=== PATIENT | male | born 1950 | race Asian ===

== ENCOUNTER 2017-04-02 14:17 | Inpatient (IN) | payer OTHER ==
[~2017-04-02] VITALS: Ht 160 cm; Wt 76.3 kg
[2017-04-02 14:33] LABS: GLUCOSE,POINT OF CARE 392 MG/DL (70-110)
[2017-04-02] MEDS ORDERED: ASPI-1093 PO (14:38)
[2017-04-02] MEDS ORDERED: SITA25 PO (14:38)
[2017-04-02] MEDS ORDERED: GLIP5 PO (14:38)
[2017-04-02] MEDS ORDERED: AMLO-511 PO (14:38)
[2017-04-02] MEDS ORDERED: LISI-660 PO (14:38)
[2017-04-02] MEDS ORDERED: ASPIRIN 81 MG CHEWABLE TABLET PO ONE (14:45)
[2017-04-02 15:03] LABS: BASOPHILS % (AUTO) 0.5 % (0.0-2.0); HEMATOCRIT 41.5 % (41-53); HEMOGLOBIN 14.7 g/dL (13.5-17.5); LYMPHOCYTES # (AUTO) 1.2 K/uL (1.0-4.8); LYMPHOCYTES % (AUTO) 17.1 % (22.0-44.0); MEAN CORPUSCULAR HEMOGLOBIN 31.8 pg (26.0-34.0); MEAN CORPUSCULAR HGB CONC 35.4 G/dL (31.0-37.0); MEAN CORPUSCULAR VOLUME 90 fL (80-100); MONOCYTES # (AUTO) 0.5 K/uL (0.1-1.0); MONOCYTES % (AUTO) 6.8 % (2.0-9.0); NEUTROPHILS # (AUTO) 4.8 K/uL (1.8-7.7); NEUTROPHILS % (AUTO) 71.6 % (40.0-70.0); PLATELET COUNT (AUTO) 214 K/uL (150-450); RED BLOOD CELL COUNT(AUTO) 4.63 MIL/uL (4.50-5.90); RED CELL DISTRIBUTION WIDTH 12.6 % (11.5-14.5); WHITE BLOOD COUNT (AUTO) 6.8 K/uL (4.5-11.0)
[2017-04-02 15:18] LABS: APPEARANCE,URINE CLEAR (CLEAR); GLUCOSE, URINE (UA) >=1000 mg/dL (NEGATIVE); KETONES,URINE NEGATIVE (NEGATIVE); LEUKOCYTE ESTERASE ,URINE NEGATIVE (NEGATIVE); OCCULT BLOOD,URINE TRACE (NEGATIVE); PROTEIN,URINE SEE CONFIRM (NEGATIVE)
[2017-04-02 15:21] LABS: ANION GAP 9 mmol/L (8-16); CALCIUM, TOTAL 8.9 mg/dL (8.8-10.5); CARBON DIOXIDE 26 mmol/L (22-29); CHLORIDE 101 mmol/L (98-107); CREATININE 2.09 mg/dL (0.60-1.30); GLOMERULAR FILTR. RATE CALC 32 mL/min (>60); POTASSIUM 3.9 mmol/L (3.5-5.1); SODIUM SERUM 136 mmol/L (136-145); UREA NITROGEN, BLOOD 21 mg/dL (7-18)
[2017-04-02 15:31] LABS: B-TYPE NATRIURETIC PEPTIDE 43 pg/mL (0-100)
[2017-04-02 15:32] LABS: ADD UA MICROSCOPIC YES; SULFOSALICYLIC ACID,URINE 2+ (Negative); WBC,URINE 0-2 /HPF (0-5)
[2017-04-02 15:45] LABS: ALANINE AMINOTRANSFERASE 27 U/L (12-78); ALBUMIN 3.2 g/dL (3.4-5.0); BILIRUBIN,TOTAL 0.4 mg/dL (0.1-1.0); CREATINE KINASE MB 0.8 ng/mL (0-5); CREATINE KINASE, TOTAL 160 U/L (39-308); TOTAL PROTEIN, SERUM 7.3 g/dL (6.4-8.2)
[2017-04-02 16:03] LABS: ASPARTATE AMINOTRANSFERASE 14 U/L (15-37)
[2017-04-02 16:27] LABS: GLUCOSE,POINT OF CARE 312 MG/DL (70-110)
[2017-04-02] MEDS ORDERED: GlipiZIDE 5 MG TABLET PO ONE (16:45)
[2017-04-02] MEDS ORDERED: 0.9% SODIUM CHLORIDE 10 ML SYRINGE IVP PRN (16:45)
[2017-04-02] MEDS ORDERED: ONDANSETRON HCL 4 MG/2 ML VIAL IVP PRN ×2 (16:45→18:15)
[2017-04-02] MEDS ORDERED: ACETAMINOPHEN 325 MG TABLET PO PRN ×2 (16:45→18:15)
[2017-04-02 18:13] VITALS: BP 151/90
[2017-04-02] MEDS ORDERED: ALBUTEROL SULFATE 2.5 MG/0.5 ML NEB SOLUTION NEB PRN (18:15)
[2017-04-02] MEDS ORDERED: MAGNESIUM HYDROXIDE SUSPENSION 30 ML UDCUP PO PRN (18:15)
[2017-04-02] MEDS ORDERED: BISACODYL 10 MG RECTAL RECTAL SUPPOSITORY PR PRN (18:15)
[2017-04-02] MEDS ORDERED: HYDROCODONE/ACETAMINOPHEN 5-325 MG TABLET PO PRN (18:15)
[2017-04-02] MEDS ORDERED: ZOLPIDEM TARTRATE 5 MG TABLET PO PRN (18:15)
[2017-04-02] MEDS ORDERED: IPRATROPIUM BROMIDE 0.5 MG/2.5 ML NEB SOLUTION NEB PRN (18:15)
[2017-04-02] MEDS ORDERED: MORPHINE SULFATE 2 MG/ML SYRINGE IVP PRN (18:15)
[2017-04-02] MEDS ORDERED: DEXTROSE 50%-WATER 25 GM/50 ML SYRINGE IVP PRN (18:15)
[2017-04-02 19:47] VITALS: BP 135/83
[2017-04-02] MEDS: DOCUSATE SODIUM 100 MG CAPSULE PO SCH (20:00)
[2017-04-02] MEDS: INSULIN ASPART 100 UNITS/ML SQ PRN (20:34)
[2017-04-02 23:19] VITALS: BP 137/80
[2017-04-03] MEDS: HEPARIN SODIUM,PORCINE 5,000 UNITS/ML VIAL SQ SCH ×4 (00:17→23:21)
[2017-04-03 05:33] VITALS: BP 142/77
[2017-04-03] MEDS: INSULIN ASPART 100 UNITS/ML SQ PRN ×4 (06:08→20:08)
[2017-04-03 07:27] VITALS: BP 131/73
[2017-04-03] MEDS: DOCUSATE SODIUM 100 MG CAPSULE PO SCH ×2 (09:00→20:03)
[2017-04-03] MEDS: SitaGLIPtin PHOSPHATE 50 MG TABLET PO SCH (09:15)
[2017-04-03] MEDS: ASPIRIN 81 MG EC TABLET PO SCH (09:15)
[2017-04-03] MEDS: GlipiZIDE 5 MG TABLET PO SCH ×2 (09:15→13:01)
[2017-04-03] MEDS: PANTOPRAZOLE SODIUM 40 MG/VIAL IVP SCH (09:16)
[2017-04-03] MEDS: LISINOPRIL 5 MG TABLET PO SCH (09:16)
[2017-04-03] MEDS: AmLODIPine BESYLATE 5 MG TABLET PO SCH (09:16)
[2017-04-03 11:22] LABS: GLUCOSE COMMENT 1 Received Meds; GLUCOSE,POINT OF CARE 228 MG/DL (70-110)
[2017-04-03 11:34] VITALS: BP 128/65
[2017-04-03 11:38] LABS: GLUCOSE COMMENT 1 Received Meds; GLUCOSE COMMENT 2 Doctor Notified; GLUCOSE,POINT OF CARE 402 MG/DL (70-110)
[2017-04-03 15:03] VITALS: BP 128/77
[2017-04-03 19:39] VITALS: BP 137/74
[2017-04-03 19:54] LABS: GLUCOSE,POINT OF CARE 256 MG/DL (70-110)
[2017-04-03 23:12] VITALS: BP 129/76
[2017-04-04 04:55] VITALS: BP 120/74
[2017-04-04] MEDS: INSULIN ASPART 100 UNITS/ML SQ PRN ×3 (05:54→17:23)
[2017-04-04 07:17] LABS: GLUCOSE COMMENT 1 Received Meds; GLUCOSE,POINT OF CARE 236 MG/DL (70-110)
[2017-04-04 07:17] LABS: GLUCOSE COMMENT 1 Received Meds; GLUCOSE,POINT OF CARE 246 MG/DL (70-110)
[2017-04-04 07:50] VITALS: BP 140/72
[2017-04-04] MEDS: HEPARIN SODIUM,PORCINE 5,000 UNITS/ML VIAL SQ SCH ×2 (08:27→16:47)
[2017-04-04] MEDS: GlipiZIDE 5 MG TABLET PO SCH ×2 (08:28→12:12)
[2017-04-04] MEDS: DOCUSATE SODIUM 100 MG CAPSULE PO SCH (08:28)
[2017-04-04] MEDS: SitaGLIPtin PHOSPHATE 50 MG TABLET PO SCH (08:28)
[2017-04-04] MEDS: ASPIRIN 81 MG EC TABLET PO SCH (08:28)
[2017-04-04] MEDS: LISINOPRIL 5 MG TABLET PO SCH (08:28)
[2017-04-04] MEDS: AmLODIPine BESYLATE 5 MG TABLET PO SCH (08:28)
[2017-04-04] MEDS: PANTOPRAZOLE SODIUM 40 MG/VIAL IVP SCH (08:49)
[2017-04-04 11:31] VITALS: BP 136/83
[2017-04-04 11:48] LABS: GLUCOSE COMMENT 1 Received Meds; GLUCOSE,POINT OF CARE 256 MG/DL (70-110)
[2017-04-04 15:49] VITALS: BP 137/62
[2017-04-04 18:35] LABS: BASOPHILS % (AUTO) 0.8 % (0.0-2.0); EOSINOPHILS % (AUTO) 3.4 % (1.0-6.0); HEMATOCRIT 42.8 % (41-53); HEMOGLOBIN 14.9 g/dL (13.5-17.5); LYMPHOCYTES # (AUTO) 2.1 K/uL (1.0-4.8); LYMPHOCYTES % (AUTO) 26.1 % (22.0-44.0); MEAN CORPUSCULAR HEMOGLOBIN 31.3 pg (26.0-34.0); MEAN CORPUSCULAR HGB CONC 34.7 G/dL (31.0-37.0); MEAN CORPUSCULAR VOLUME 90 fL (80-100); MONOCYTES # (AUTO) 0.6 K/uL (0.1-1.0); MONOCYTES % (AUTO) 7.9 % (2.0-9.0); NEUTROPHILS % (AUTO) 61.8 % (40.0-70.0); PLATELET COUNT (AUTO) 233 K/uL (150-450); RED BLOOD CELL COUNT(AUTO) 4.75 MIL/uL (4.50-5.90); RED CELL DISTRIBUTION WIDTH 12.8 % (11.5-14.5); WHITE BLOOD COUNT (AUTO) 8.2 K/uL (4.5-11.0)
[2017-04-04 18:43] LABS: CALCIUM, TOTAL 9.6 mg/dL (8.8-10.5); CREATININE 2.37 mg/dL (0.60-1.30); MAGNESIUM 1.9 mg/dL (1.80-2.40); POTASSIUM 4.4 mmol/L (3.5-5.1)
[2017-04-04 18:54] LABS: PROTHROMBIN TIME 10.2 SEC (9.4-11.6)
[2017-04-04] MEDS ORDERED: ASPI-1093 PO (18:56)
[2017-04-04] MEDS ORDERED: AMLO-511 PO (18:57)
[2017-04-04] MEDS ORDERED: DSS100 PO (18:57)
[2017-04-04] MEDS ORDERED: GLIP5 PO (18:57)
[2017-04-04] MEDS ORDERED: HEPA500017 SQ (18:58)
[2017-04-04] MEDS ORDERED: LISI-660 PO (18:58)
[2017-04-04] MEDS ORDERED: PANT40I IV (18:59)
[2017-04-04] MEDS ORDERED: SITA50 PO (18:59)
[2017-04-04] MEDS ORDERED: ACET-2902 PO (18:59)
[2017-04-04] MEDS ORDERED: AUD NEB (19:00)
[2017-04-04] MEDS ORDERED: BISA5TAB12 PO (19:00)
[2017-04-04] MEDS ORDERED: HYDR-3965 PO (19:02)
[2017-04-04] MEDS ORDERED: D50SYG IVP (19:02)
[2017-04-04 19:19] VITALS: BP 131/79
[2017-04-04] MEDS ORDERED: INSNOV SQ (19:22)
[2017-04-04] MEDS ORDERED: IPRNEB IH (19:23)
[2017-04-04] MEDS ORDERED: MOM30 PO (19:23)
[2017-04-04] MEDS ORDERED: MS100DRIP SQ (19:24)
[2017-04-04] MEDS ORDERED: ZOLP5 PO (19:25)
[2017-04-04] MEDS ORDERED: ONDA4 IV (19:25)
[2017-04-04 20:17] LABS: GLUCOSE,POINT OF CARE 234 MG/DL (70-110)
[2017-04-04 22:12] LABS: GLUCOSE,POINT OF CARE 255 MG/DL (70-110)
== END 2017-04-04 19:50 | disposition short-term general hospital (02) | DRG 312 ==
LOC: EMS 14:19 → 5N 16:25
PROVIDERS: ADMIT Hospitalist; ATTEND Hospitalist
DX: R55 Syncope and collapse (principal); E11.22 Type 2 diabetes mellitus with diabetic chronic kidney disease; E11.65 Type 2 diabetes mellitus with hyperglycemia; N18.9 Chronic kidney disease, unspecified; Z79.84 Long term (current) use of oral hypoglycemic drugs; Z79.82 Long term (current) use of aspirin; Z79.899 Other long term (current) drug therapy; Z83.3 Family history of diabetes mellitus; Z82.49 Family history of ischemic heart disease and other diseases of the circulatory system; I25.10 Atherosclerotic heart disease of native coronary artery without angina pectoris; V43.52XA Car driver injured in collision with other type car in traffic accident, initial encounter; V49.69XA Unspecified car occupant injured in collision with other motor vehicles in traffic accident, initial encounter; Y93.89 Activity, other specified; Y92.89 Other specified places as the place of occurrence of the external cause; Y99.8 Other external cause status; I12.9 Hypertensive chronic kidney disease with stage 1 through stage 4 chronic kidney disease, or unspecified chronic kidney disease; Z95.5 Presence of coronary angioplasty implant and graft
CPT/HCPCS: 70450; 70551; 82962; 83735; 93005; 93306; 93880; 95816; 99291; C9113; J1644

== ENCOUNTER → 2017-04-11 | Outpatient (CLI) | payer OTHER ==
[~2017-04-11] VITALS: Ht 157.5 cm; Wt 74.5 kg
[~2017-04-11] MED LIST: ACET-2902 PO; AMLO-511 PO; ASPI-1093 PO; AUD NEB; BISA5TAB12 PO; D50SYG IVP; DSS100 PO; GLIP5 PO; HEPA500017 SQ; HYDR-3965 PO; INSNOV SQ; IPRNEB IH; LISI-660 PO; MOM30 PO; MS100DRIP SQ; ONDA4 IV; PANT40I IV; SITA25 PO; SITA50 PO; ZOLP5 PO
[2017-04-11 11:18] VITALS: BP 95/54
== END | disposition home or self-care (01) ==
LOC: SRCNTR 11:03
PROVIDERS: ATTEND Internal Medicine Clinical Cardiac Electrophysiology
DX: Z45.09 Encounter for adjustment and management of other cardiac device (principal); I10 Essential (primary) hypertension; E11.9 Type 2 diabetes mellitus without complications; R55 Syncope and collapse; Z79.4 Long term (current) use of insulin; Z79.82 Long term (current) use of aspirin
CPT/HCPCS: G0463

== ENCOUNTER → 2017-04-25 | Outpatient (CLI) | payer OTHER ==
[~2017-04-25] VITALS: Ht 160 cm; Wt 75.5 kg
[~2017-04-25] MED LIST changes: -ACET-2902 PO; -AUD NEB; -BISA5TAB12 PO; -D50SYG IVP; -DSS100 PO; -HYDR-3965 PO; -IPRNEB IH; -MOM30 PO; -MS100DRIP SQ; -ONDA4 IV; -PANT40I IV; -SITA25 PO; -ZOLP5 PO
[2017-04-25 10:03] VITALS: BP 124/84
== END | disposition home or self-care (01) ==
LOC: SRCNTR 09:34
PROVIDERS: ATTEND Internal Medicine Clinical Cardiac Electrophysiology
DX: Z45.018 Encounter for adjustment and management of other part of cardiac pacemaker (principal); I10 Essential (primary) hypertension; E11.9 Type 2 diabetes mellitus without complications
CPT/HCPCS: G0463

== ENCOUNTER → 2017-05-23 | Outpatient (CLI) | payer OTHER ==
[~2017-05-23] VITALS: Ht 160 cm; Wt 75.5 kg
[~2017-05-23] MED LIST changes: -ASPI-1093 PO; +ASPI-1188 PO
[2017-05-23 10:03] VITALS: BP 130/70
== END | disposition home or self-care (01) ==
LOC: SRCNTR 09:45
PROVIDERS: ATTEND Internal Medicine Clinical Cardiac Electrophysiology
DX: I10 Essential (primary) hypertension (principal); E11.9 Type 2 diabetes mellitus without complications; R55 Syncope and collapse; Z79.4 Long term (current) use of insulin; Z79.82 Long term (current) use of aspirin
CPT/HCPCS: 93005; G0463

== ENCOUNTER → 2017-09-12 | Outpatient (CLI) | payer OTHER ==
[~2017-09-12] VITALS: Ht 160 cm; Wt 78.0 kg
[~2017-09-12] MED LIST changes: -HEPA500017 SQ; +HEPA500018 SQ
[2017-09-12 14:14] VITALS: BP 125/82
== END | disposition home or self-care (01) ==
LOC: SRCNTR 14:03
PROVIDERS: ATTEND Internal Medicine Clinical Cardiac Electrophysiology
DX: I48.0 Paroxysmal atrial fibrillation (principal); R53.83 Other fatigue; I10 Essential (primary) hypertension; E11.9 Type 2 diabetes mellitus without complications; Z79.82 Long term (current) use of aspirin
CPT/HCPCS: 93288; G0463

== ENCOUNTER → 2017-09-26 | Outpatient (CLI) | payer OTHER ==
[~2017-09-26] VITALS: Ht 160 cm; Wt 76.0 kg
[2017-09-26 14:37] VITALS: BP 169/86
== END | disposition home or self-care (01) ==
LOC: SRCNTR 14:34
PROVIDERS: ATTEND Internal Medicine Clinical Cardiac Electrophysiology
DX: Z45.018 Encounter for adjustment and management of other part of cardiac pacemaker (principal)
CPT/HCPCS: 93288; G0463

== ENCOUNTER → 2017-10-31 | Outpatient (CLI) | payer OTHER ==
[~2017-10-31] VITALS: Ht 160 cm; Wt 76.0 kg
[2017-10-31 14:33] VITALS: BP 125/73
== END | disposition home or self-care (01) ==
LOC: SRCNTR 14:09
PROVIDERS: ATTEND Internal Medicine Clinical Cardiac Electrophysiology
DX: I48.0 Paroxysmal atrial fibrillation (principal); I10 Essential (primary) hypertension; E11.9 Type 2 diabetes mellitus without complications; R55 Syncope and collapse; Z79.82 Long term (current) use of aspirin; Z79.84 Long term (current) use of oral hypoglycemic drugs
CPT/HCPCS: 93288; G0463

== ENCOUNTER → 2017-11-03 | Outpatient (CLI) | payer OTHER ==
[2017-11-07 09:58] VITALS: BP 133/73
== END | disposition home or self-care (01) ==
LOC: SRCNTR 15:35
PROVIDERS: ATTEND Internal Medicine Clinical Cardiac Electrophysiology
DX: I10 Essential (primary) hypertension (principal)
CPT/HCPCS: G0463

== ENCOUNTER 2021-05-29 16:36 | Inpatient (IN) | payer MEDICARE, OTHER ==
[~2021-05-29] VITALS: Ht 157.5 cm; Wt 66.8 kg
[~2021-05-29 16:36] MED LIST changes: +AMLO-257 PO; -AMLO-511 PO; -ASPI-1188 PO; +ASPI-1522 PO; -LISI-660 PO; +LISI-892 PO
[2021-05-29] MEDS ORDERED: PIOG30TA10 PO (16:44)
[2021-05-29 17:31] LABS: GLUCOMETER DEV NAME(LOC) ERT.5; GLUCOSE,POINT OF CARE 113 MG/DL (70-110)
[2021-05-29 17:32] LABS: BASOPHILS % (AUTO) 1.1 % (0.0-2.0); EOSINOPHILS % (AUTO) 2.7 % (1.0-6.0); HEMOGLOBIN 8.1 g/dL (13.5-17.5); LYMPHOCYTES # (AUTO) 0.7 K/uL (1.0-4.8); LYMPHOCYTES % (AUTO) 13.5 % (22.0-44.0); MEAN CORPUSCULAR HGB CONC 33.6 G/dL (31.0-37.0); MEAN CORPUSCULAR VOLUME 92 fL (80-100); MONOCYTES # (AUTO) 0.4 K/uL (0.1-1.0); MONOCYTES % (AUTO) 8.1 % (2.0-9.0); NEUTROPHILS % (AUTO) 74.6 % (40.0-70.0); PLATELET COUNT (AUTO) 165 K/uL (150-450); RED CELL DISTRIBUTION WIDTH 13.7 % (11.5-14.5)
[2021-05-29 17:47] LABS: ALBUMIN 3.6 g/dL (3.4-5.0); BILIRUBIN,TOTAL 0.2 mg/dL (0.1-1.0); CALCIUM, TOTAL 7.5 mg/dL (8.8-10.5); CREATININE 9.68 mg/dL (0.60-1.30); TOTAL PROTEIN, SERUM 7.1 g/dL (6.4-8.2)
[2021-05-29 17:49] LABS: POTASSIUM 7.1 mmol/L (3.5-5.1)
[2021-05-29] MEDS ORDERED: GLIP10 PO (17:58)
[2021-05-29] MEDS ORDERED: AMLO-258 PO (17:58)
[2021-05-29] MEDS ORDERED: INSULIN REGULAR, HUMAN 100 UNITS/ML IVP ONE (18:00)
[2021-05-29] MEDS ORDERED: DEXTROSE 50%-WATER 25 GM/50 ML SYRINGE IVP ONE (18:00)
[2021-05-29] MEDS ORDERED: CALCIUM GLUCONATE 0.465 MEQ/ML 10 ML VIAL IVP ONE (18:00)
[2021-05-29] MEDS ORDERED: SODIUM BICARBONATE [ADULT] 8.4% 50 MEQ/50 ML SYRINGE IVP ONE (18:00)
[2021-05-29] MEDS ORDERED: SODIUM POLYSTYRENE SULFONATE 15 GM/60 ML SUSPENSION BOTTLE PO ONE (18:15)
[2021-05-29 18:43] LABS: GLUCOMETER DEV NAME(LOC) ERT.5; GLUCOSE,POINT OF CARE 101 MG/DL (70-110)
[2021-05-29 19:00] LABS: PROTHROMBIN TIME 10.3 SEC (9.4-11.6)
[2021-05-29 19:21] LABS: COVID AG,FIA SOURCE NASOPHARYNGEAL
[2021-05-29 19:26] LABS: GLUCOMETER DEV NAME(LOC) ERT.5; GLUCOSE,POINT OF CARE 191 MG/DL (70-110)
[2021-05-29 19:27] LABS: MAGNESIUM 1.9 mg/dL (1.80-2.40)
[2021-05-29 19:30] LABS: LACTIC ACID 1.1 mmol/L (0.4-2.0)
[2021-05-29] MEDS ORDERED: ACETAMINOPHEN 325 MG TABLET PO PRN (19:45)
[2021-05-29 19:59] LABS: CALCIUM, TOTAL 8.3 mg/dL (8.8-10.5); CREATININE 9.68 mg/dL (0.60-1.30); POTASSIUM 5.6 mmol/L (3.5-5.1)
[2021-05-29] MEDS ORDERED: [UNRECOGNIZED DRUG - OTHER] BC (20:12)
[2021-05-29] MEDS ORDERED: [UNRECOGNIZED DRUG - REMARK] CERV (20:12)
[2021-05-29] MEDS ORDERED: DEXTROSE 50%-WATER 25 GM/50 ML SYRINGE IVP PRN (20:15)
[2021-05-29] MEDS ORDERED: SODIUM BICARBONATE 75 MEQ in SODIUM CHLORIDE 0.45% 1,000 ML IV ONE (20:30)
[2021-05-29] MEDS ORDERED: FURO40 PO (20:33)
[2021-05-29] MEDS ORDERED: SODI650T33 PO (20:33)
[2021-05-29 20:35] LABS: RETICULOCYTE % (AUTO) 2.2 % (0.5-2.3)
[2021-05-29] MEDS ORDERED: SODIUM CHLORIDE 0.9% 1,000 ML IV SCH (20:45)
[2021-05-29] MEDS ORDERED: SODIUM CHLORIDE 0.9% 1,000 ML IV ONE (20:45)
[2021-05-29 22:10] LABS: APPEARANCE,URINE CLEAR (CLEAR); BILIRUBIN,URINE NEGATIVE (NEGATIVE); GLUCOSE, URINE (UA) 100 mg/dL (NEGATIVE); KETONES,URINE NEGATIVE (NEGATIVE); LEUKOCYTE ESTERASE ,URINE NEGATIVE (NEGATIVE); NITRATE,URINE NEGATIVE (NEGATIVE); OCCULT BLOOD,URINE MODERATE (NEGATIVE); PROTEIN,URINE SEE CONFIRM (NEGATIVE); UROBILINOGEN,URINE 0.2 mg/dL (<=1.0)
[2021-05-29 22:12] LABS: BACTERIA,URINE Rare /HPF (None Seen); SULFOSALICYLIC ACID,URINE 4+ (Negative); WBC,URINE 0-2 /HPF (0-5)
[2021-05-29 23:01] LABS: C.DIFF GDH ANTIGEN, Stool Negative (Negative); C.DIFF TOXINS A&B, Stool Negative (Negative)
[2021-05-29 23:34] LABS: CALCIUM, TOTAL 7.7 mg/dL (8.8-10.5); CREATININE 9.74 mg/dL (0.60-1.30)
[2021-05-29 23:43] LABS: POTASSIUM 7.2 mmol/L (3.5-5.1)
[2021-05-30] MEDS ORDERED: DEXTROSE 50%-WATER 25 GM/50 ML SYRINGE IVP ONE
[2021-05-30] MEDS ORDERED: CALCIUM GLUCONATE 100 MG/ML 10 ML IVP ONE
[2021-05-30] MEDS ORDERED: HEPARIN SODIUM,PORCINE 5,000 UNITS/ML VIAL SQ SCH
[2021-05-30] MEDS ORDERED: INSULIN REGULAR, HUMAN 100 UNITS/ML IVP ONE
[2021-05-30] MEDS ORDERED: LOPERAMIDE HCL 2 MG CAPSULE PO PRN
[2021-05-30] MEDS ORDERED: ALBUTEROL SULFATE 5 MG/ML 20 ML NEB SOLN [BULK] NEB ONE
[2021-05-30] MEDS ORDERED: SODIUM BICARBONATE [ADULT] 8.4% 50 MEQ/50 ML SYRINGE IVP ONE ×2 (00:15)
[2021-05-30 00:54] LABS: GLUCOMETER DEV NAME(LOC) ERT.5; GLUCOSE,POINT OF CARE 103 MG/DL (70-110)
[2021-05-30 00:57] LABS: HEMATOCRIT 22.9 % (41-53); HEMOGLOBIN 7.6 g/dL (13.5-17.5)
[2021-05-30] MEDS ORDERED: HEPARIN SODIUM,PORCINE 100 UNITS/ML 5 ML VIAL IVP ONE ×2 (01:15)
[2021-05-30 04:18] LABS: BASOPHILS % (AUTO) 0.8 % (0.0-2.0); HEMATOCRIT 22.2 % (41-53); HEMOGLOBIN 7.6 g/dL (13.5-17.5); LYMPHOCYTES # (AUTO) 0.8 K/uL (1.0-4.8); LYMPHOCYTES % (AUTO) 13.4 % (22.0-44.0); MEAN CORPUSCULAR HEMOGLOBIN 30.8 pg (26.0-34.0); MEAN CORPUSCULAR HGB CONC 34.5 G/dL (31.0-37.0); MEAN CORPUSCULAR VOLUME 89 fL (80-100); MONOCYTES # (AUTO) 0.3 K/uL (0.1-1.0); MONOCYTES % (AUTO) 5.7 % (2.0-9.0); NEUTROPHILS # (AUTO) 4.7 K/uL (1.8-7.7); NEUTROPHILS % (AUTO) 79.1 % (40.0-70.0); PLATELET COUNT (AUTO) 132 K/uL (150-450); RED BLOOD CELL COUNT(AUTO) 2.48 MIL/uL (4.50-5.90); RED CELL DISTRIBUTION WIDTH 13.5 % (11.5-14.5)
[2021-05-30 04:30] LABS: CREATININE 6.36 mg/dL (0.60-1.30); MAGNESIUM 1.8 mg/dL (1.80-2.40); POTASSIUM 4.3 mmol/L (3.5-5.1)
[2021-05-30 10:32] VITALS: BP 158/93
[2021-05-30] MEDS: AmLODIPine BESYLATE 10 MG TABLET PO SCH (10:54)
[2021-05-30 11:00] VITALS: BP 152/89
[2021-05-30] MEDS ORDERED: LISI-893 PO (11:10)
[2021-05-30] MEDS ORDERED: DIGOXIN 250 MCG/ML 2 ML AMP IVP ONE (11:45)
[2021-05-30] MEDS ORDERED: HEPARIN SODIUM,PORCINE 1,000 UNITS/ML VIAL IVP ONE (12:00)
[2021-05-30] MEDS: SEVELAMER CARBONATE 800 MG TABLET PO SCH ×2 (12:18→18:00)
[2021-05-30 13:29] LABS: CREATININE,URINE RANDOM 26.2 mg/dL (30.0-125.0)
[2021-05-30] MEDS ORDERED: PNEUMOCOCCAL VACCINE POLYVALENT 0.5 ML VIAL [PPSV23] IM. ONE (14:15)
[2021-05-30 14:57] VITALS: BP 156/83
[2021-05-30] MEDS: ONDANSETRON HCL 4 MG/2 ML VIAL IVP PRN (18:22)
[2021-05-30 20:04] VITALS: BP 131/66
[2021-05-30] MEDS: APIXABAN 2.5 MG TABLET PO SCH (20:18)
[2021-05-30] MEDS: AMIODARONE HCL 200 MG TABLET PO SCH (20:18)
[2021-05-30 23:46] VITALS: BP 121/63
[2021-05-31 04:54] VITALS: BP 136/61
[2021-05-31 08:02] LABS: CALCIUM, TOTAL 8.3 mg/dL (8.8-10.5); CREATININE 6.71 mg/dL (0.60-1.30); PHOSPHORUS 5.7 mg/dL (2.5-4.9); POTASSIUM 4.7 mmol/L (3.5-5.1)
[2021-05-31 08:03] VITALS: BP 123/55
[2021-05-31 08:29] LABS: % IRON SATURATION 29.1 % (30-44)
[2021-05-31] MEDS: SEVELAMER CARBONATE 800 MG TABLET PO SCH ×3 (08:50→18:00)
[2021-05-31] MEDS: APIXABAN 2.5 MG TABLET PO SCH (08:50)
[2021-05-31] MEDS: EPOETIN ALFA 10,000 UNITS/ML 2 ML VIAL SQ SCH (08:51)
[2021-05-31] MEDS: AMIODARONE HCL 200 MG TABLET PO SCH ×2 (08:52→20:02)
[2021-05-31] MEDS: AmLODIPine BESYLATE 10 MG TABLET PO SCH (09:00)
[2021-05-31 11:34] LABS: GLUCOMETER DEV NAME(LOC) 5S.1; GLUCOSE,POINT OF CARE 134 MG/DL (70-110)
[2021-05-31 11:35] LABS: GLUCOMETER DEV NAME(LOC) 5S.1; GLUCOSE,POINT OF CARE 128 MG/DL (70-110)
[2021-05-31 11:35] LABS: GLUCOMETER DEV NAME(LOC) 5S.1; GLUCOSE,POINT OF CARE 129 MG/DL (70-110)
[2021-05-31 12:14] VITALS: BP 110/59
[2021-05-31 12:45] LABS: GLUCOMETER DEV NAME(LOC) 5S.2B; GLUCOSE,POINT OF CARE 100 MG/DL (70-110)
[2021-05-31 12:45] LABS: GLUCOMETER DEV NAME(LOC) 5S.2B; GLUCOSE,POINT OF CARE 105 MG/DL (70-110)
[2021-05-31 16:39] VITALS: BP 137/57
[2021-05-31] MEDS ORDERED: DIGOXIN 250 MCG/ML 2 ML AMP IVP ONE (17:45)
[2021-05-31 19:14] LABS: GLUCOMETER DEV NAME(LOC) 5S.1; GLUCOSE,POINT OF CARE 118 MG/DL (70-110)
[2021-05-31] MEDS: INSULIN LISPRO 100 UNITS/ML SQ PRN ×2 (19:50→21:19)
[2021-05-31 20:31] VITALS: BP 130/55
[2021-05-31 20:36] LABS: GLUCOMETER DEV NAME(LOC) 5S.1; GLUCOSE,POINT OF CARE 141 MG/DL (70-110)
[2021-06-01] VITALS (8 sets, daily range): BP systolic 103–158; BP diastolic 50–117
[2021-06-01 01:50] LABS: GLUCOMETER DEV NAME(LOC) 5S.2B; GLUCOSE,POINT OF CARE 75 MG/DL (70-110)
[2021-06-01 01:50] LABS: GLUCOMETER DEV NAME(LOC) 5S.2B; GLUCOSE,POINT OF CARE 177 MG/DL (70-110)
[2021-06-01 06:37] LABS: CALCIUM, TOTAL 7.8 mg/dL (8.8-10.5); CREATININE 4.95 mg/dL (0.60-1.30); PHOSPHORUS 4.3 mg/dL (2.5-4.9); POTASSIUM 4.3 mmol/L (3.5-5.1)
[2021-06-01] MEDS: SEVELAMER CARBONATE 800 MG TABLET PO SCH ×3 (08:00→17:51)
[2021-06-01 08:13] LABS: GLUCOMETER DEV NAME(LOC) 5S.2B; GLUCOSE,POINT OF CARE 109 MG/DL (70-110)
[2021-06-01] MEDS: AmLODIPine BESYLATE 10 MG TABLET PO SCH (08:20)
[2021-06-01] MEDS: AMIODARONE HCL 200 MG TABLET PO SCH ×2 (08:20→21:22)
[2021-06-01] MEDS ORDERED: LIDOCAINE 1%/EPI 1:200,000/PF 10 ML VIAL ONE (09:06)
[2021-06-01] MEDS ORDERED: FentaNYL CITRATE PF 100 MCG/2 ML VIAL ONE (09:06)
[2021-06-01] MEDS ORDERED: MIDAZOLAM HCL 2 MG/2 ML VIAL ONE (09:06)
[2021-06-01] MEDS ORDERED: HEPARIN SODIUM,PORCINE 1,000 UNITS/ML 10 ML VIAL ONE (09:09)
[2021-06-01] MEDS ORDERED: FentaNYL CITRATE PF 100 MCG/2 ML VIAL IVP ONE ×2 (10:35→10:50)
[2021-06-01] MEDS ORDERED: MIDAZOLAM HCL 2 MG/2 ML VIAL IVP ONE (10:35)
[2021-06-01] MEDS: METOPROLOL SUCCINATE 25 MG ER TABLET PO SCH (11:44)
[2021-06-01 12:00] LABS: GLUCOMETER DEV NAME(LOC) 5N.3; GLUCOSE,POINT OF CARE 127 MG/DL (70-110)
[2021-06-01 17:57] LABS: GLUCOMETER DEV NAME(LOC) 5N.1C; GLUCOSE,POINT OF CARE 114 MG/DL (70-110)
[2021-06-01] MEDS: ONDANSETRON HCL 4 MG/2 ML VIAL IVP PRN (18:25)
[2021-06-01] MEDS ORDERED: APIXABAN 2.5 MG TABLET PO SCH (21:00)
[2021-06-01] MEDS: INSULIN LISPRO 100 UNITS/ML SQ PRN (22:42)
[2021-06-02 00:08] VITALS: BP 131/82
[2021-06-02 01:02] LABS: GLUCOMETER DEV NAME(LOC) 5S.2B; GLUCOSE,POINT OF CARE 158 MG/DL (70-110)
[2021-06-02 04:02] VITALS: BP 108/50
[2021-06-02 05:06] LABS: HEPATITIS C AB (EIA) <0.1 s/co ratio (0.0-0.9)
[2021-06-02 06:48] LABS: GLUCOMETER DEV NAME(LOC) 5S.2B; GLUCOSE,POINT OF CARE 109 MG/DL (70-110)
[2021-06-02 07:45] VITALS: BP 140/54
[2021-06-02 08:10] LABS: CALCIUM, TOTAL 7.8 mg/dL (8.8-10.5); CREATININE 4.55 mg/dL (0.60-1.30); PHOSPHORUS 3.2 mg/dL (2.5-4.9); POTASSIUM 4.6 mmol/L (3.5-5.1)
[2021-06-02] MEDS: AMIODARONE HCL 200 MG TABLET PO SCH ×2 (08:25→20:41)
[2021-06-02] MEDS: AmLODIPine BESYLATE 10 MG TABLET PO SCH (08:25)
[2021-06-02] MEDS: METOPROLOL SUCCINATE 25 MG ER TABLET PO SCH (08:26)
[2021-06-02] MEDS: EPOETIN ALFA 10,000 UNITS/ML 2 ML VIAL SQ SCH (08:26)
[2021-06-02] MEDS: SEVELAMER CARBONATE 800 MG TABLET PO SCH ×3 (08:26→17:35)
[2021-06-02 11:35] VITALS: BP 131/69
[2021-06-02] MEDS: INSULIN LISPRO 100 UNITS/ML SQ PRN (11:53)
[2021-06-02 13:42] LABS: GLUCOMETER DEV NAME(LOC) 5N.1C; GLUCOSE,POINT OF CARE 175 MG/DL (70-110)
[2021-06-02 15:00] VITALS: BP 148/67
[2021-06-02 19:26] VITALS: BP 146/59
[2021-06-02 20:27] LABS: GLUCOMETER DEV NAME(LOC) 5N.1C; GLUCOSE,POINT OF CARE 112 MG/DL (70-110)
[2021-06-02 23:57] LABS: GLUCOMETER DEV NAME(LOC) 5N.3; GLUCOSE,POINT OF CARE 128 MG/DL (70-110)
[2021-06-03 00:12] VITALS: BP 128/56
[2021-06-03 04:14] VITALS: BP 130/55
[2021-06-03 07:12] VITALS: BP 146/91
[2021-06-03 07:49] LABS: CALCIUM, TOTAL 7.3 mg/dL (8.8-10.5); CREATININE 6.04 mg/dL (0.60-1.30); POTASSIUM 4.4 mmol/L (3.5-5.1)
[2021-06-03] MEDS: SEVELAMER CARBONATE 800 MG TABLET PO SCH ×3 (08:00→18:08)
[2021-06-03 08:06] LABS: HIV 1-2 SCREEN 4TH GEN W/RFLX Non Reactive (Non Reactive)
[2021-06-03] MEDS: AmLODIPine BESYLATE 10 MG TABLET PO SCH (09:00)
[2021-06-03] MEDS: METOPROLOL SUCCINATE 25 MG ER TABLET PO SCH (09:00)
[2021-06-03] MEDS: AMIODARONE HCL 200 MG TABLET PO SCH ×2 (09:00→20:22)
[2021-06-03] MEDS ORDERED: SODIUM CHLORIDE 0.9% 2,000 ML ONE (09:17)
[2021-06-03 11:36] VITALS: BP 136/68
[2021-06-03] MEDS ORDERED: SODIUM CHLORIDE 0.9% 1,000 ML ONE (13:25)
[2021-06-03] MEDS ORDERED: SODIUM CHLORIDE 0.9% 1,000 ML IV ONE (14:00)
[2021-06-03] MEDS ORDERED: SODIUM CHLORIDE 0.9% 500 ML IV ONE (14:33)
[2021-06-03] MEDS ORDERED: HEPARIN SODIUM,PORCINE 5,000 UNITS/ML VIAL ONE ×2 (14:33→15:36)
[2021-06-03] MEDS ORDERED: SODIUM CHLORIDE 0.9% 0 ML ONE (14:33)
[2021-06-03] MEDS ORDERED: BACITRACIN 50,000 UNITS/VIAL ONE (14:33)
[2021-06-03] MEDS ORDERED: LIDOCAINE/PF 1% 30 ML VIAL ONE (14:33)
[2021-06-03] MEDS ORDERED: SODIUM CHLORIDE 0.9% 10 ML ONE (14:33)
[2021-06-03] MEDS ORDERED: PROPOFOL 1000 MG/ISO-OSM 100 ML ONE (14:45)
[2021-06-03] MEDS ORDERED: HEPARIN SODIUM 1000 UNITS/NS 0 ML ONE (15:36)
[2021-06-03] MEDS ORDERED: HYDROCODONE/ACETAMINOPHEN 5-325 MG TABLET PO PRN (15:45)
[2021-06-03] MEDS ORDERED: HYDROCODONE/ACETAMINOPHEN 10-325 MG TABLET PO PRN (15:45)
[2021-06-03] MEDS ORDERED: HEPARIN SODIUM,PORCINE 1,000 UNITS/ML VIAL IVP ONE (16:24)
[2021-06-03] MEDS ORDERED: HYDROmorphone 2 MG/ML VIAL IVP PRN (17:15)
[2021-06-03] MEDS ORDERED: FentaNYL CITRATE PF 100 MCG/2 ML VIAL IVP PRN (17:15)
[2021-06-03 17:50] LABS: GLUCOMETER DEV NAME(LOC) 5N.1C; GLUCOSE,POINT OF CARE 110 MG/DL (70-110)
[2021-06-03 19:50] VITALS: BP 138/57
[2021-06-03] MEDS: OXYGEN THERAPY IH SCH (20:22)
[2021-06-03 23:02] VITALS: BP 129/59
[2021-06-04 04:56] VITALS: BP 130/55
[2021-06-04] MEDS ORDERED: MIDAZOLAM HCL 2 MG/2 ML VIAL IVP ONE (05:46)
[2021-06-04] MEDS ORDERED: LIDOCAINE/PF 2% 5 ML VIAL IM ONE (05:46)
[2021-06-04 07:19] VITALS: BP 142/78
[2021-06-04 07:54] LABS: GLUCOMETER DEV NAME(LOC) 5S.2B; GLUCOSE,POINT OF CARE 115 MG/DL (70-110)
[2021-06-04] MEDS: OXYGEN THERAPY IH SCH ×2 (07:56→20:00)
[2021-06-04] MEDS: AmLODIPine BESYLATE 10 MG TABLET PO SCH (07:56)
[2021-06-04] MEDS: SEVELAMER CARBONATE 800 MG TABLET PO SCH ×3 (07:57→17:25)
[2021-06-04] MEDS: METOPROLOL SUCCINATE 25 MG ER TABLET PO SCH (07:57)
[2021-06-04] MEDS: EPOETIN ALFA 10,000 UNITS/ML 2 ML VIAL SQ SCH (08:01)
[2021-06-04 10:58] LABS: CALCIUM, TOTAL 7.2 mg/dL (8.8-10.5); CREATININE 5.27 mg/dL (0.60-1.30); POTASSIUM 4.4 mmol/L (3.5-5.1)
[2021-06-04 11:02] LABS: BASOPHILS % (AUTO) 0.5 % (0.0-2.0); EOSINOPHILS % (AUTO) 0.4 % (1.0-6.0); HEMATOCRIT 24.3 % (41-53); HEMOGLOBIN 8.4 g/dL (13.5-17.5); LYMPHOCYTES # (AUTO) 0.6 K/uL (1.0-4.8); LYMPHOCYTES % (AUTO) 7.7 % (22.0-44.0); MEAN CORPUSCULAR HEMOGLOBIN 30.8 pg (26.0-34.0); MEAN CORPUSCULAR HGB CONC 34.4 G/dL (31.0-37.0); MEAN CORPUSCULAR VOLUME 90 fL (80-100); MONOCYTES # (AUTO) 0.6 K/uL (0.1-1.0); MONOCYTES % (AUTO) 7.2 % (2.0-9.0); NEUTROPHILS # (AUTO) 6.7 K/uL (1.8-7.7); NEUTROPHILS % (AUTO) 84.2 % (40.0-70.0); PLATELET COUNT (AUTO) 91 K/uL (150-450); RED BLOOD CELL COUNT(AUTO) 2.71 MIL/uL (4.50-5.90); RED CELL DISTRIBUTION WIDTH 13.5 % (11.5-14.5)
[2021-06-04 11:07] VITALS: BP 150/70
[2021-06-04] MEDS: INSULIN LISPRO 100 UNITS/ML SQ PRN ×2 (11:45→20:44)
[2021-06-04 11:57] LABS: GLUCOMETER DEV NAME(LOC) 5N.3; GLUCOSE,POINT OF CARE 107 MG/DL (70-110)
[2021-06-04 11:58] LABS: GLUCOMETER DEV NAME(LOC) 5N.3; GLUCOSE,POINT OF CARE 187 MG/DL (70-110)
[2021-06-04] MEDS ORDERED: HEPARIN SODIUM,PORCINE 1,000 UNITS/ML VIAL IVP ONE (14:43)
[2021-06-04 15:46] VITALS: BP 137/66
[2021-06-04 20:18] VITALS: BP 132/62
[2021-06-04] MEDS: APIXABAN 2.5 MG TABLET PO SCH (20:45)
[2021-06-05 00:04] LABS: GLUCOMETER DEV NAME(LOC) 5N.1C; GLUCOSE,POINT OF CARE 158 MG/DL (70-110)
[2021-06-05 00:04] LABS: GLUCOMETER DEV NAME(LOC) 5N.1C; GLUCOSE,POINT OF CARE 104 MG/DL (70-110)
[2021-06-05 00:04] LABS: GLUCOMETER DEV NAME(LOC) 5N.1C; GLUCOSE,POINT OF CARE 116 MG/DL (70-110)
[2021-06-05 00:04] LABS: GLUCOMETER DEV NAME(LOC) 5S.2B; GLUCOSE,POINT OF CARE 177 MG/DL (70-110)
[2021-06-05 00:49] VITALS: BP 107/54
[2021-06-05] MEDS: OXYGEN THERAPY IH SCH (08:00)
[2021-06-05] MEDS: SEVELAMER CARBONATE 800 MG TABLET PO SCH ×2 (08:08→12:06)
[2021-06-05] MEDS: APIXABAN 2.5 MG TABLET PO SCH (08:10)
[2021-06-05] MEDS: METOPROLOL SUCCINATE 25 MG ER TABLET PO SCH (08:10)
[2021-06-05] MEDS: AmLODIPine BESYLATE 10 MG TABLET PO SCH (08:10)
[2021-06-05 08:23] LABS: GLUCOMETER DEV NAME(LOC) 5S.2B; GLUCOSE,POINT OF CARE 117 MG/DL (70-110)
[2021-06-05] MEDS: INSULIN LISPRO 100 UNITS/ML SQ PRN (12:22)
[2021-06-05] MEDS: ONDANSETRON HCL 4 MG/2 ML VIAL IVP PRN (16:25)
[2021-06-05] MEDS ORDERED: HEPARIN SODIUM,PORCINE 1,000 UNITS/ML VIAL IVP ONE (16:49)
[2021-06-05 22:10] LABS: GLUCOMETER DEV NAME(LOC) 5N.1C; GLUCOSE,POINT OF CARE 179 MG/DL (70-110)
[2021-06-06] MEDS ORDERED: AmLODIPine BESYLATE 5 MG TABLET PO SCH (09:00)
== END 2021-06-05 16:50 | disposition home or self-care (01) | DRG 674 ==
LOC: EMS 16:37 → 5S 19:33 → UNDOADMIN 19:33 → 5S 05-30 06:23
PROVIDERS: ADMIT Internal Medicine; ATTEND Internal Medicine
PROC: 0JH63XZ Insertion of Tunneled Vascular Access Device into Chest Subcutaneous Tissue and Fascia, Percutaneous Approach (ICD-10-PCS; 2021-06-01)
PROC: 02HV33Z Insertion of Infusion Device into Superior Vena Cava, Percutaneous Approach (ICD-10-PCS; 2021-06-01)
PROC: B548ZZA Ultrasonography of Superior Vena Cava, Guidance (ICD-10-PCS; 2021-06-01)
PROC: B5181ZA Fluoroscopy of Superior Vena Cava using Low Osmolar Contrast, Guidance (ICD-10-PCS; 2021-06-01)
PROC: 03180ZD Bypass Left Brachial Artery to Upper Arm Vein, Open Approach (ICD-10-PCS; principal; 2021-06-03 15:00)
DX: N17.9 Acute kidney failure, unspecified (principal); I47.2 Ventricular tachycardia; E87.2 Acidosis; I12.0 Hypertensive chronic kidney disease with stage 5 chronic kidney disease or end stage renal disease; N18.6 End stage renal disease; N25.81 Secondary hyperparathyroidism of renal origin; R19.7 Diarrhea, unspecified; E87.5 Hyperkalemia; E11.22 Type 2 diabetes mellitus with diabetic chronic kidney disease; D63.1 Anemia in chronic kidney disease; I48.0 Paroxysmal atrial fibrillation; Z79.01 Long term (current) use of anticoagulants; Z82.49 Family history of ischemic heart disease and other diseases of the circulatory system; Z83.3 Family history of diabetes mellitus
CPT/HCPCS: 36561; 71045; 74176; 76000; 76770; 80048; 80053; 81001; 81002; 82271; 82306; 82550; 82570; 82728; 82962; 83036; 83540; 83550; 83605; 83615; 83690; 83735; 83880; 83970; 84100; 84156; 84300; 84484; 85014; 85018; 85025; 85045; 85610; 85730; 86704; 86706; 86803; 86850; 86900; 86901; 87040; 87045; 87324; 87340; 87389; 87449; 89055; 93005; 93306; 93970; 99285; J0610; J0690; J0885; J1160; J1642; J1644; J1815; J2250; J2405; J2704; J3010; J3490; J7030; J7040; J7050; 36415-L1; 36415-TC